=== PATIENT | male | born 1950 | race Caucasian/White ===

== ENCOUNTER → 2020-03-29 16:01 | Outpatient (CLI) | payer MEDICARE, SELFPAY ==
[2020-03-30 19:58] LABS: COVID19 Sendout Not Detected (Not Detect)
== END ==
PROVIDERS: Visit Provider Physician Assistant
DX: Z11.59 Encounter for screening for other viral diseases (principal)
CPT/HCPCS: 87635

== ENCOUNTER 2020-04-01 07:01 | Day surgery (SDC) | payer MEDICARE, SELFPAY ==
[2020-04-01] MEDS: PROPARACAINE 0.5% OPHTH SOL 2 DROPS EYE-OP (07:48)
[2020-04-01 07:49] VITALS: BP 168/81; PULSE 57; RESP 16; TEMP 36.6; O2SAT 98; BMI 23.7
[2020-04-01] MEDS: CATARACT EYE COMPOUND (10 DROPS/SYRINGE) 3 DROPS EYE-OP (08:06)
[2020-04-01 08:13] VITALS: BMI 23.7
--- NOTE | 2020-04-01 08:22 | PM.PREOP ---
Pre-operative Note COVID-19 COVID-19 status: Negative Result date/Date tested (Pos, Neg/Pending): 03/29/20 Interval Note History & Physical reviewed/Exam performed by Physician: Yes Changes to H&P: No
[2020-04-01] MEDS: LIDOCAINE 2% INJ SDV 2 ML INJ (08:41)
[2020-04-01] MEDS: MOXIFLOXACIN INJ 5 MG/ML VIAL EYE-OP (08:41)
[2020-04-01] MEDS: BALANCED SALT IRRIG SOLN NO.2 15 ML 5 ML IRR (08:41)
[2020-04-01] MEDS: CHONDROIDTIN/SOD HYALURONATE 1.05 ML SYRINGE INTRAOCULA (08:41)
[2020-04-01] MEDS: BALANCED SALT IRRIG SOLN NO.2 500 ML, EPINEPHrine 1 MG IRR (08:42)
[2020-04-01] MEDS: TETRACAINE 0.5% OPHTH DROPS 4 ML 2 DROPS EYE-OP (08:42)
[2020-04-01] MEDS: PHENYLEPHRINE/LIDOCAINE VIAL (OR) 0.2 ML EYE-OP (08:42)
--- NOTE | 2020-04-01 08:56 | PM.OP.1 ---
Procedure & Clinicians Procedure: Cataract extraction with intraocular lens implant, right. 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 The correct patient, surgical site and lens were confirmed. 0.5 % tetracaine drops were placed in the right eye. The patient was prepped and draped in the typical sterile manner. A lid speculum was placed in the eye. 2% lidocaine was placed on the eye. A paracentesis port was created with a side-port blade. 0.1 mL of 1% preservative free lidocaine with phenylephrine was injected into the anterior chamber. Viscoelastic was injected into the anterior chamber. A 2.6mm keratome was used to create a clear corneal temporal incision. Cystotome and Utrata forceps were used to create a continuous curvilinear capsulorrhexis. Balanced salt solution was used to hydrodissect the nucleus. Phacoemulsification was used to remove the lens. The capsular bag was inflated with viscoelastic. A Gomez ZCBOO +13.0D lens was inserted into the capsule. Viscoelastic was removed and the wound hydrated. The wound was found to be leak free and the eye was assessed to be at normal physiologic pressure. 0.1mL Moxifloxacin (5mg/mL) preservative free was injected into the anterior chamber. The lid speculum was removed and the patient left the operating room in excellent condition. Complications: none Post-operative Condition: stable Disposition: same day surgery
[2020-04-01 08:59] VITALS: BP 112/67; PULSE 54; RESP 16; TEMP 36.1; O2SAT 98
[2020-04-01 09:20] VITALS: BP 114/66; PULSE 49; RESP 18; O2SAT 97
[2020-04-01 09:34] VITALS: BP 120/68; PULSE 59; RESP 18; TEMP 36.8; O2SAT 97
--- NOTE | 2020-04-01 10:25 | SUR.PREOP ---
0753 - Pt vagaled after IV insertion. Pale, diaphoretic, nauseated. BP 96/51, HR 61. Cool rag applied to forhead. Placed on stretcher. 0813 - BP 143/77. HR 55. Pt states he feels better. 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
== END 2020-04-01 09:44 | disposition home or self-care (01) ==
LOC: OR 07:04
PROVIDERS: Referring Provider Ophthalmology; Visit Provider Ophthalmology
PROC: (CPT 66984; principal; 2020-04-01 08:15)
DX: H25.11 Age-related nuclear cataract, right eye (principal)
CPT/HCPCS: 66984; J0171; J2250; J3010

== ENCOUNTER → 2020-04-12 14:09 | Outpatient (CLI) | payer MEDICARE, SELFPAY ==
[2020-04-13 11:39] LABS: COVID19 Sendout Not Detected (Not Detect)
== END ==
PROVIDERS: Visit Provider Physician Assistant
DX: Z11.59 Encounter for screening for other viral diseases (principal)
CPT/HCPCS: 87635

== ENCOUNTER 2020-04-15 06:59 | Day surgery (SDC) | payer MEDICARE, SELFPAY ==
[2020-04-15] MEDS: PROPARACAINE 0.5% OPHTH SOL 2 DROPS EYE-OP (07:38)
[2020-04-15] MEDS: CATARACT EYE COMPOUND (10 DROPS/SYRINGE) 3 DROPS EYE-OP (07:39)
[2020-04-15 07:41] VITALS: BP 174/94; PULSE 61; RESP 15; TEMP 36.9; O2SAT 100
--- NOTE | 2020-04-15 07:47 | SUR.PREOP ---
Patient becoming nauseated after IV placement. Patient states that this has happened before. Cool cloth given, sip of water given and patient resting head between knees. Denies any CP or Sob. Recheck of vital signs wnl. Bp 137/69, HR 68.
--- NOTE | 2020-04-15 08:31 | PM.PREOP ---
Pre-operative Note COVID-19 COVID-19 status: Negative Result date/Date tested (Pos, Neg/Pending): 04/12/20 Interval Note History & Physical reviewed/Exam performed by Physician: Yes Changes to H&P: No
[2020-04-15] MEDS: BALANCED SALT IRRIG SOLN NO.2 500 ML, EPINEPHrine 1 MG IRR (08:52)
[2020-04-15] MEDS: LIDOCAINE 2% INJ SDV 2 ML INJ (08:53)
[2020-04-15] MEDS: PHENYLEPHRINE/LIDOCAINE VIAL (OR) 0.2 ML EYE-OP (08:53)
[2020-04-15] MEDS: MOXIFLOXACIN INJ 5 MG/ML VIAL EYE-OP (08:53)
[2020-04-15] MEDS: CHONDROIDTIN/SOD HYALURONATE 1.05 ML SYRINGE INTRAOCULA (08:54)
[2020-04-15] MEDS: TETRACAINE 0.5% OPHTH DROPS 4 ML 2 DROPS EYE-OP (08:54)
[2020-04-15] MEDS: BALANCED SALT IRRIG SOLN NO.2 15 ML 5 ML IRR (08:55)
--- NOTE | 2020-04-15 09:10 | PM.OP.1 ---
Procedure & Clinicians Procedure: Cataract extraction with intraocular lens implant, left. Same procedure as scheduled: Yes Indications: Visually significant age related nuclear sclerosis Surgeon: Jordy Patrick Click Yes if Unassisted: Yes Anesthesia Type: MAC +/- Operative Notes Procedure in detail: The patient was brought to the operating suite. The correct patient, surgical site and lens were confirmed. 0.5 % tetracaine drops were placed in the left eye. The patient was prepped and draped in the typical sterile manner. A lid speculum was placed in the eye. 2% lidocaine was placed on the eye. A paracentesis port was created with a side-port blade. 0.1 mL of 1% preservative free lidocaine with phenylephrine was injected into the anterior chamber. Viscoelastic was injected into the anterior chamber. A 2.6mm keratome was used to create a clear corneal temporal incision. Cystotome and Utrata forceps were used to create a continuous curvilinear capsulorrhexis. Balanced salt solution was used to hydrodissect the nucleus. Phacoemulsification was used to remove the lens. The capsular bag was inflated with viscoelastic. A Gomez ZCBOO 14.0D lens was inserted into the capsule. Viscoelastic was removed and the wound hydrated. The wound was found to be leak free and the eye was assessed to be at normal physiologic pressure. 0.1mL Moxifloxacin (5mg/mL) preservative free was injected into the anterior chamber. The lid speculum was removed and the patient left the operating room in excellent condition. Post-operative Condition: stable Disposition: same day surgery
[2020-04-15 09:12] VITALS: BP 140/82; PULSE 58; RESP 14; TEMP 36.2; O2SAT 98
[2020-04-15 09:22] VITALS: BP 139/86; PULSE 66; RESP 14; O2SAT 98
== END 2020-04-15 10:22 | disposition home or self-care (01) ==
LOC: OR 07:01
PROVIDERS: Referring Provider Ophthalmology; Visit Provider Ophthalmology
PROC: (CPT 66984; principal; 2020-04-15 08:15)
DX: H25.12 Age-related nuclear cataract, left eye (principal); F17.210 Nicotine dependence, cigarettes, uncomplicated
CPT/HCPCS: 66984; J0171; J2250; J3010

== ENCOUNTER 2021-02-05 13:19 | Emergency (ER) | payer MEDICARE, SELFPAY ==
[2021-02-05] VITALS (16 sets, daily range): BP systolic 98–143; BP diastolic 60–78; PULSE 55–80; RESP 16–24; TEMP 36.6; O2SAT 98–100; BMI 21.7
[2021-02-05 13:40] LABS: Add Manual Diff / Slide Review NO; Basophils Absolute Auto 100 /uL (0-100); Basophils Percent Auto 0.6 % (0-2); Eosinophils Absolute Auto 100 /uL (0-450); Eosinophils Percent Auto 0.6 % (2-4); Hematocrit 33.6 % (41-53); Hemoglobin 11.3 g/dL (13.5-17.5); Lymphocytes Absolute Auto 3300 /uL (1100-4500); Lymphocytes Percent Auto 27.5 % (25-40); Mean Corpuscular HGB Conc 33.8 % (30-36); Mean Corpuscular Hemoglobin 30.4 PG (26-34); Monocytes Absolute Auto 900 /uL (0-900); Monocytes Percent Auto 7.7 % (3-14); Neutrophils Absolute Auto 7700 /uL (1500-7000); Neutrophils Percent Auto 63.6 % (50-75); Platelet Count 306 X10^3/uL (150-400); Red Blood Cell Count 3.73 X10^6/uL (4.5-5.9); Red Cell Distribution Width 13.3 % (11.6-14.8); White Blood Cell Count 12.1 X10^3/uL (4.5-11.0)
[2021-02-05 13:50] LABS: Alanine Aminotransferase 12 IU/L (<50); Albumin 3.5 g/dL (3.5-5.0); Albumin Globulin Ratio 1.3 (1.0-2.8); Alkaline Phosphatase 61 U/L (38-126); Aspartate Aminotransferase 18 IU/L (17-59); BUN Creatinine Ratio 24.4 (6-22); Bilirubin Total 0.6 mg/dL (0.2-1.3); Blood Urea Nitrogen 21 mg/dL (9-20); Calcium 8.8 mg/dL (8.4-10.2); Carbon Dioxide 27 mmol/L (22-32); Chloride 98 mmol/L (98-107); Estimated Glomerular Filt Rate > 60.0 mL/min (>60); Globulin 2.6 g/dL (1.7-4.1); Glucose 113 mg/dL (80-110); HEMOLYSIS < 15 (0-50); Magnesium 1.9 mg/dL (1.6-2.3); Potassium 3.8 mmol/L (3.4-5.1); Sodium 132 mmol/L (137-145); Total Protein 6.1 g/dL (6.3-8.2)
--- NOTE | 2021-02-05 13:56 | ED_ITS ---
HPI - Syncope General Chief Complaint: Syncope Stated Complaint: syncopal episdoe Time Seen by Provider: 02/05/21 13:21 Source: patient and EMS Mode of arrival: EMS Limitations: no limitations History of Present Illness HPI narrative: 70-year-old male smoker with non contributory medical history presents by EMS for evaluation of a syncopal or near syncopal episode prior to arrival. He states that he has had little to drink or eat for some time, for no particular reason. He states that he was standing next to a truck and began to feel lightheaded and developed some tunnel vision and then slid over and probabl y briefly passed out. EMS was called on their arrival they found his systolic blood pressure to still be in the 60s. He was given IV and some fluids and by the time he got here he felt much better and had a blood pressure of over 100. He denies any dietary change, drinking or street drugs. He denies any injury as a consequence of today's event. MD complaint: loss of consciousness and felt faint Onset (ago): minute(s) -: second(s) Description of event: tonic-clonic movements Prodromal symptoms: lightheaded Witnessed: yes - by bystander Context: at rest Injuries sustained associated with event: none Current symptoms: none Related Data Home Medications Medication Instructions Recorded Confirmed No Known Home Medications 04/01/20 04/15/20 Allergies Allergy/AdvReac Type Severity Reaction Status Date / Time No Known Drug Allergies Allergy Verified 04/15/20 07:35 Review of Systems Constitutional Constitutional: Denies chills, Denies fatigue, Denies fever(s), Denies frequent falls, Denies lethargy and Denies weakness Eyes Eyes: Denies change in vision, Denies eye discharge, Denies irritation and Denies loss of vision ENT Ears, Nose, Mouth, and Throat: Denies change in voice, Denies dizziness, Denies neck pain, Denies sore throat and Denies throat swelling Cardiovascular Cardiovascular: Denies chest pain, Denies irregular heart rhythm, Reports lightheadedness, Denies palpitations, Denies dyspnea, Denies dyspnea on exertion and Denies orthopnea Respiratory Respiratory: Denies cough, Denies dyspnea, Denies dyspnea on exertion and Denies wheezing Gastrointestinal Gastrointestinal: Denies abdominal pain, Denies change in bowel habits, Denies diarrhea, Denies nausea and Denies vomiting Musculoskeletal Musculoskeletal: Denies neck pain and Denies numbness Integumentary/Breasts Skin/Breast: Denies pruritus, Denies erythema, Denies rash and Denies wounds Neurologic Neurologic: Denies behavioral changes, Denies confusion, Denies dizziness, Denies frequent falls, Denies loss of vision, Denies numbness and Denies weakness Psychiatric Psychiatric: Denies anxiety, Denies behavioral changes, Denies confusion, Denies depression, Denies homicidal ideation and Denies suicidal ideation Endocrine Endocrine: Denies fatigue, Denies flushing and Denies palpitations Hematologic/Lymphatic Hematologic/Lymphatic: Denies easy bruising Allergic/Immunologic Allergic/Immunologic: Denies urticaria, Denies throat swelling and Denies w heezing Patient History Medical History Needle phobia Social History household members: spouse Smoking Status: Former smoker alcohol intake: current Smoking Status: Former smoker alcohol intake frequency: a few times a week Substance Use Type: marijuana Exam Narrative Exam Narrative: GENERAL: [70] year old patient appears stated age. Well- developed patient, in mild distress. HEAD: Atraumatic. Normocephalic. EYES: Pupils equal round and reactive. Extraocular motions intact. No scleral icterus. No injection or drainage. ENT: Nose without bleeding, purulent drainage. Throat without erythema, tonsillar hypertrophy or exudate. Airway patent. NECK: Trachea midline. Non tender CARDIOVASCULAR: Regular rate and rhythm without murmurs, gallops, or rubs. RESPIRATORY: Clear to auscultation. Breath sounds equal bilaterally. No wheezes, rales, or rhonchi. GASTROINTESTINAL: Abdomen soft, non-tender, nondistended. EXTREMITIES: No edema or joint tenderness. BACK: Nontender without deformity or crepitance. No flank tenderness. NEURO: AOx3. SKIN: No rash or erythema of visible areas Initial Vital Signs Initial Vital Signs: Vital Signs Temperature 98 F 02/05/21 13:25 Pulse Rate 63 02/05/21 13:25 Respiratory Rate 16 02/05/21 13:25 Blood Pressure 118/71 02/05/21 13:25 Pulse Oximetry 98 02/05/21 13:25 Course Course Course Narrative: Patient feeling much better after fluids started to make some urines, he did well with orthostatics, is no longer dizzy, weak or lightheaded. He is eating and drinking without difficulty. Patient had a syncopal episode with prodromal symptoms including dizziness, weakness and lightheadedness, he was able to ease himself down and did not injure himself. EKG shows no ischemic findings. Physical exam, history and labs which suggest dehydration. Return precautions given and questions answered to the patient's satisfaction Orders Ordered: ED Orders 02/05/21 13:21 EKG-12 Lead Stat 02/05/21 13:35 Complete Blood Count AUTO DIFF Stat Comprehensive Metabolic Panel Stat Magnesium Stat Discontinued Medications Lactated Ringer's (Lactated Ringers) 1,000 mls @ 1,000 mls/hr IV BOLUS ONE Stop: 02/05/21 14:20 Last Infusion: 02/05/21 15:09 Dose: 0 mls/hr Documented by: Admin: 02/05/21 14:14 Dose: 1,000 mls/hr Documented by: ALVIN Vital Signs Vital signs: Vital Signs - 8 hr 02/05/21 13:25 02/05/21 13:43 02/05/21 13:45 Temperature 98 F Pulse Rate 63 56 L 55 L Pulse Rate [Orthostatic Lying] Pulse Rate [Orthostatic Sitting] Pulse Rate [Orthostatic Standing] Respiratory Rate 16 17 20 Blood Pressure 118/71 98/60 Blood Pressure [Orthostatic Lying] Blood Pressure [Orthostatic Sitting] Blood Pressure [Orthostatic Standing] Pulse Oximetry 98 02/05/21 14:00 02/05/21 14:15 02/05/21 14:30 Temperature Pulse Rate 58 L 61 56 L Pulse Rate [Orthostatic Lying] Pulse Rate [Orthostatic Sitting] Pulse Rate [Orthostatic Standing] Respiratory Rate 21 18 18 Blood Pressure 105/65 109/71 115/73 Blood Pressure [Orthostatic Lying] Blood Pressure [Orthostatic Sitting] Blood Pressure [Orthostatic Standing] Pulse Oximetry 100 99 100 02/05/21 14:45 02/05/21 14:48 02/05/21 14:50 Temperature Pulse Rate 57 L 61 63 Pulse Rate [Orthostatic Lying] Pulse Rate [Orthostatic Sitting] Pulse Rate [Orthostatic Standing] Respiratory Rate 17 18 22 Blood Pressure 129/69 124/78 139/73 Blood Pressure [Orthostatic Lying] Blood Pressure [Orthostatic Sitting] Blood Pressure [Orthostatic Standing] Pulse Oximetry 100 100 100 02/05/21 14:51 02/05/21 14:52 02/05/21 14:55 Temperature Pulse Rate 72 Pulse Rate [Orthostatic Lying] 59 L Pulse Rate [Orthostatic Sitting] 67 Pulse Rate [Orthostatic Standing] 80 Respiratory Rate 22 Blood Pressure 140/76 Blood Pressure [Orthostatic Lying] 124/78 124/78 Blood Pressure [Orthostatic Sitting] 139/73 139/73 Blood Pressure [Orthostatic Standing] 140/76 140/76 Pulse Oximetry 100 02/05/21 15:00 02/05/21 15:15 02/05/21 15:30 Temperature Pulse Rate 61 61 60 Pulse Rate [Orthostatic Lying] Pulse Rate [Orthostatic Sitting] Pulse Rate [Orthostatic Standing] Respiratory Rate 20 20 24 Blood Pressure Blood Pressure [Orthostatic Lying] Blood Pressure [Orthostatic Sitting] Blood Pressure [Orthostatic Standing] Pulse Oximetry 100 100 100 MDM - Syncope Lab Data Result diagrams: 02/05/21 13:35 02/05/21 13:35 Labs: Lab Results 02/05/21 02/05/21 Range/Units 13:35 13:35 WBC 12.1 H (4.5-11.0) X10^3/uL RBC 3.73 L (4.5-5.9) X10^6/uL Hgb 11.3 L (13.5-17.5) g/dL Hct 33.6 L (41-53) % MCV 90.0 (80-100) fL MCH 30.4 (26-34) PG MCHC 33.8 (30-36) % RDW 13.3 (11.6-14.8) % Plt Count 306 (150-400) X10^3/uL Neut % (Auto) 63.6 (50-75) % Lymph % (Auto) 27.5 (25-40) % [place] % (Auto) 7.7 (3-14) % Eos % (Auto) 0.6 L (2-4) % Baso % (Auto) 0.6 (0-2) % Neut # (Auto) 7700 H (0302-8199) /uL Lymph # (Auto) 3300 (7398-1027) /uL [place] # (Auto) 900 (0-900) /uL Eos # (Auto) 100 (0-450) /uL Baso # (Auto) 100 (0-100) /uL Sodium 132 L (137-145) mmol/L Potassium 3.8 (3.4-5.1) mmol/L Chloride 98 (98-107) mmol/L Carbon Dioxide 27 (22-32) mmol/L BUN 21 H (9-20) mg/dL Creatinine 0.86 (0.66-1.25) mg/dL Estimated GFR > 60.0 (>60) mL/min BUN/Creatinine Ratio 24.4 H (6-22) Glucose 113 H (80-110) mg/dL Calcium 8.8 (8.4-10.2) mg/dL Magnesium 1.9 (1.6-2.3) mg/dL Total Bilirubin 0.6 (0.2-1.3) mg/dL AST 18 (17-59) IU/L ALT 12 (<50) IU/L Alkaline Phosphatase 61 (38-126) U/L Total Protein 6.1 L (6.3-8.2) g/dL Albumin 3.5 (3.5-5.0) g/dL Globulin 2.6 (1.7-4.1) g/dL Albumin/Globulin Ratio 1.3 (1.0-2.8) Urine Dip Bedside Urine Glucose Negative Bedside Urine Bilirubin - Negative Bedside Urine Ketone - Negative Urine Specific [place] 1.025 Bedside Urine Occult Blood - Negative Bedside Urine pH 6.0 Bedside Urine Protein + 30 Bedside Urine Urobilinogen - Negative Bedside Urine Nitrite - Negative Bedside Urine Leukocytes - Negative Esterase Discharge Plan Departure Patient Disposition: Home Clinical Impression: Dehydration, Near syncope Instructions: DI for Syncope in Adults (Fainting), DI for Dehydration -- Adult Activity Restrictions/Additional Instructions: *You have been diagnosed with [near syncope and dehydration. Labs, response to fluids and other testing is very reassuring] *What to do: *Please continue to take your regular medications as directed. [ ] New medication prescriptions sent to your pharmacy: [ ] [ ] New medication written as a paper prescription [ ] No new medications given *Please follow up with your primary care provider in 2-3 days, call for an appointment. Let them know you were seen in the Emergency Department and that we ask that you be seen in follow up. We will electronically transmit a record of today's note if your PCP is in our system *If you do not have a primary care provider please contact the [facility] Resource line at [phone]. They will ask some questions about your medical history and help get you set up with a doctor in the community. *Return to Emergency Department if you should have any new, worsening or concerning symptoms, such as [fever greater than 101 F, shaking chills, worsening pain, persistent vomiting or other bothersome symptoms] Prescriptions: No Action No Known Home Medications RF: 0 Referrals: [facility] Resources [Outside]
[2021-02-05] MEDS: LACTATED RINGERS 1,000 ML 1000 ML IV (14:14)
== END 2021-02-05 15:47 | disposition home or self-care (01) ==
PROVIDERS: Emergency Provider Emergency Medicine
DX: E86.0 Dehydration (principal); R55 Syncope and collapse
CPT/HCPCS: 80053; 81003; 83735; 85025; 93005; 96360; 99284

== ENCOUNTER 2021-02-19 15:46 | Emergency (ER) | payer MEDICARE, SELFPAY ==
[2021-02-19 16:59] VITALS: BP 153/88; PULSE 87; RESP 18; TEMP 37.6; O2SAT 98; BMI 20.6
--- NOTE | 2021-02-19 17:30 | DI.CT.S_ITS ---
PROCEDURE: CT ABDOMEN PELVIS W CON INDICATIONS: generalized abd pain TECHNIQUE: After the administration of IV contrast, axial sections were acquired from the lung bases to the pubic symphysis. Coronal and sagittal reformats were performed. For radiation dose reduction, the following was used: automated exposure control, adjustment of mA and/or kV according to patient size. COMPARISON: None. FINDINGS: Image quality: Excellent. Lung bases: Unremarkable. Heart: No significant findings. ABDOMEN: Liver: Liver is enlarged with fatty infiltration. In addition, there is a mildly nodular appearance. Multiple low-attenuation foci are present, the largest measuring approximately 4 mm. In addition, there are 2 foci of enhancement: Anterior hepatic dome 0.7 cm x 1.0 cm (10/08 and medial right hepatic lobe 1.2 cm x 1.1 cm (10/17). No priors are available for comparison. Gallbladder: Unremarkable. Biliary ducts: Unremarkable. Pancreas: Unremarkable. Spleen: Unremarkable. Adrenal Glands: Unremarkable. Kidneys and Ureters: Kidneys are nonobstructive. Renal cysts are present bilaterally. Stomach and Bowel: Stomach, small bowel loops, and colon are unremarkable. It is noted that they are incompletely visualized secondary to severe abdominal and pelvic ascites. Prominent colonic diverticula are noted. However, they are incompletely evaluated secondary to significant overlying fluid. No free air. Ventral Wall: No hernia. Abdominal Nodes: No retroperitoneal or mesenteric adenopathy by size criteria. Vessels: Aorta and inferior vena cava are normal in size. PELVIS: Pelvic Organs: Unremarkable. Bladder: Unremarkable. Pelvic Nodes: No enlarged lymph nodes. Miscellaneous: No inguinal hernias are seen. Bones: Unremarkable. IMPRESSION: 1. Significant ascites obscuring some portions of the abdomen and pelvis. Liver is enlarged with coarsened/nodular appearance suggestive of cirrhosis. 2. Subcentimeter low-attenuation hepatic foci too small to definitively characterize. However, these may represent small cysts. 3. Enhancing foci within the liver as above. These are overall nonspecific. These could represent hemangiomas. However, other etiologies cannot be excluded and no priors are available for comparison. Recommend interval follow-up with CT or MR with hepatic protocol for further Dictated by: Raina Mabyr M.D. on 02/19/2021 at 18:51 Approved by: Raina Mabry M.D. on 02/19/2021 at 19:00
[2021-02-19] MEDS: LACTATED RINGERS 1,000 ML 1000 ML IV (17:44)
[2021-02-19 18:04] LABS: Add Manual Diff / Slide Review NO; Basophils Absolute Auto 100 /uL (0-100); Basophils Percent Auto 0.7 % (0-2); Eosinophils Absolute Auto 0 /uL (0-450); Eosinophils Percent Auto 0.2 % (2-4); Hematocrit 37.4 % (41-53); Hemoglobin 12.5 g/dL (13.5-17.5); Lymphocytes Absolute Auto 3100 /uL (1100-4500); Lymphocytes Percent Auto 25.2 % (25-40); Mean Corpuscular HGB Conc 33.3 % (30-36); Mean Corpuscular Hemoglobin 29.9 PG (26-34); Mean Corpuscular Volume 89.7 fL (80-100); Monocytes Absolute Auto 1100 /uL (0-900); Monocytes Percent Auto 8.7 % (3-14); Neutrophils Absolute Auto 8000 /uL (1500-7000); Neutrophils Percent Auto 65.2 % (50-75); Platelet Count 302 X10^3/uL (150-400); Red Blood Cell Count 4.17 X10^6/uL (4.5-5.9); Red Cell Distribution Width 13.3 % (11.6-14.8); White Blood Cell Count 12.2 X10^3/uL (4.5-11.0)
--- NOTE | 2021-02-19 18:08 | ED_ITS ---
HPI - Abdominal Pain General Chief Complaint: Abdominal Pain Stated Complaint: LT QUADRANT ABDOMINAL PAIN Time Seen by Provider: 02/19/21 17:27 Source: patient Mode of arrival: Ambulatory Limitations: no limitations History of Present Illness HPI narrative: 70-year-old male smoker with noncontributory medical history presents by EMS for evaluation of a near syncopal episode prior to his arrival. He states that for the past few weeks he has had some difficulty with bowel movements and has become nauseated when eating or drinking so has admittedly had less to eat and drink. he states that he had been on his feet and felt a bit faint, dizzy and lightheaded and eased himself to the ground. EMS found a blood pressure in the 60s and brought him here. He states he has been having crampy lower abdominal pain over the past 1-2 weeks without any obvious provocation, palliation or radiation. He has had no fever chills and denies chest pain or shortness MD complaint: abdominal pain Onset (ago): day(s) Pain Consistency: constant Location: suprapubic Severity: moderate Quality: cramping and aching Radiation: none Relieving factors: nothing Exacerbating factors: nothing Associated symptoms: nausea Related Data Previous Rx's Medication Instructions Recorded magnesium citrate 150 ml PO ONCE #296 ml 02/17/21 omeprazole 20 mg capsule,delayed 20 mg PO DAILY #14 cap 02/17/21 release hydrocodone-acetaminophen 1 tab PO Q4-6H PRN #10 tab 02/19/21 oxycodone 5 mg PO Q4-6H PRN #10 tab 02/19/21 Allergies Allergy/AdvReac Type Severity Reaction Status Date / Time No Known Drug Allergies Allergy Verified 02/19/21 16:59 Review of Systems Constitutional Constitutional: Denies chills, Denies fatigue, Denies fever(s), Denies frequent falls, Denies lethargy and Denies weakness Eyes Eyes: Denies change in vision, Denies eye discharge, Denies irritation and Denies loss of vision ENT Ears, Nose, Mouth, and Throat: Denies change in voice, Denies dizziness, Denies neck pain, Denies sore throat and Denies throat swelling Cardiovascular Cardiovascular: Denies chest pain, Denies irregular heart rhythm, Denies lightheadedness, Denies palpitations, Denies dyspnea, Denies dyspnea on exertion and Denies orthopnea Respiratory Respiratory: Denies cough, Denies dyspnea, Denies dyspnea on exertion and Denies wheezing Gastrointestinal Gastrointestinal: Reports abdominal pain, Denies change in bowel habits, Denies diarrhea, Reports nausea and Denies vomiting Musculoskeletal Musculoskeletal: Denies neck pain and Denies numbness Integumentary/Breasts Skin/Breast: Denies pruritus, Denies erythema, Denies rash and Denies wounds Neurologic Neurologic: Denies behavioral changes, Denies confusion, Denies dizziness, Denies frequent falls, Denies loss of vision, Denies numbness and Denies weakness Psychiatric Psychiatric: Denies anxiety, Denies behavioral changes, Denies confusion, Denies depression, Denies homicidal ideation and Denies suicidal ideation Endocrine Endocrine: Denies fatigue, Denies flushing and Denies palpitations Hematologic/Lymphatic Hematologic/Lymphatic: Denies easy bruising Allergic/Immunologic Allergic/Immunologic: Denies urticaria, Denies throat swelling and Denies wheezing Patient History Medical History Needle phobia Social History household members: spouse Smoking Status: Former smoker alcohol intake: current Smoking Status: Former smoker alcohol intake frequency: holidays/special occasions only Substance Use Type: marijuana Exam Narrative Exam Narrative: GENERAL: [70] year old patient appears stated age. Well- developed patient, in mild distress. HEAD: Atraumatic. Normocephalic. EYES: Pupils equal round and reactive. Extraocular motions intact. No scleral icterus. No injection or drainage. ENT: Nose without bleeding, purulent drainage. Throat without erythema, tonsillar hypertrophy or exudate. Airway patent. NECK: Trachea midline. Non tender CARDIOVASCULAR: Regular rate and rhythm without murmurs, gallops, or rubs. RESPIRATORY: Clear to auscultation. Breath sounds equal bilaterally. No wheezes, rales, or rhonchi. GASTROINTESTINAL: Abdomen soft, non-tender, nondistended. Decreased bowel sounds in lower quadrants EXTREMITIES: No edema or joint tenderness. BACK: Nontender without deformity or crepitance. No flank tenderness. NEURO: AOx3. SKIN: No rash or erythema of visible areas Initial Vital Signs Initial Vital Signs: Vital Signs Temperature 99.6 F 02/19/21 16:59 Pulse Rate 87 02/19/21 16:59 Respiratory Rate 18 02/19/21 16:59 Blood Pressure 153/88 H 02/19/21 16:59 Pulse Oximetry 98 02/19/21 16:59 Course Orders Ordered: Discontinued Medications Lactated Ringer's (Lactated Ringers) 1,000 mls @ 1,000 mls/hr IV BOLUS ONE Stop: 02/19/21 18:26 Last Infusion: 02/19/21 20:54 Dose: 0 mls/hr Documented by: Admin: 02/19/21 17:44 Dose: 1,000 mls/hr Documented by: JSHAFF Oxycodone/Acetaminophen (Oxycodone/Apap 5/325 Prepack) 1 bottle MISC SEEINSTR ONE Stop: 02/19/21 21:20 Last Admin: 02/19/21 21:58 Dose: 1 bottle Documented by: KING Reevaluation(s) Reevaluation #1: Patient feeling much better, orthostatics are unremarkable and patient can not ambulate to the department with no trouble Vital Signs Vital signs: Vital Signs - 8 hr 02/19/21 22:04 Pulse Rate 85 Respiratory Rate 16 Blood Pressure 129/81 Pulse Oximetry 99 MDM - Abdominal Pain Lab Data Result diagrams: 02/19/21 17:21 02/19/21 17:21 Labs: Lab Results 02/19/21 02/19/21 Range/Units 17:21 17:21 WBC 12.2 H (4.5-11.0) X10^3/uL RBC 4.17 L (4.5-5.9) X10^6/uL Hgb 12.5 L (13.5-17.5) g/dL Hct 37.4 L (41-53) % MCV 89.7 (80-100) fL MCH 29.9 (26-34) PG MCHC 33.3 (30-36) % RDW 13.3 (11.6-14.8) % Plt Count 302 (150-400) X10^3/uL Neut % (Auto) 65.2 (50-75) % Lymph % (Auto) 25.2 (25-40) % Stark % (Auto) 8.7 (3-14) % Eos % (Auto) 0.2 L (2-4) % Baso % (Auto) 0.7 (0-2) % Neut # (Auto) 8000 H (0077-4663) /uL Lymph # (Auto) 3100 (4225-4816) /uL Stark # (Auto) 1100 H (0-900) /uL Eos # (Auto) 0 (0-450) /uL Baso # (Auto) 100 (0-100) /uL Sodium 131 L (137-145) mmol/L Potassium 3.7 (3.4-5.1) mmol/L Chloride 98 (98-107) mmol/L Carbon Dioxide 29 (22-32) mmol/L BUN 24 H (9-20) mg/dL Creatinine 0.80 (0.66-1.25) mg/dL Estimated GFR > 60.0 (>60) mL/min BUN/Creatinine Ratio 30.0 H (6-22) Glucose 102 (80-110) mg/dL Calcium 9.9 (8.4-10.2) mg/dL Total Bilirubin 1.0 (0.2-1.3) mg/dL AST 21 (17-59) IU/L ALT 12 (<50) IU/L Alkaline Phosphatase 71 (38-126) U/L Total Protein 6.5 (6.3-8.2) g/dL Albumin 3.6 (3.5-5.0) g/dL Globulin 2.9 (1.7-4.1) g/dL Albumin/Globulin Ratio 1.2 (1.0-2.8) Lipase 181 (23-300) U/L Point of care testing: Urine Dip Bedside Urine Glucose Negative Bedside Urine Bilirubin - Negative Bedside Urine Ketone - Negative Urine Specific [place] 1.025 Bedside Urine Occult Blood - Negative Bedside Urine pH 6.0 Bedside Urine Protein +/- 15 Bedside Urine Urobilinogen - Negative Bedside Urine Nitrite - Negative Bedside Urine Leukocytes - Negative Esterase Imaging Data CT scan - abdomen/pelvis: Radiologist's Impression: [address] [id number] Scan ReportSigned Patient: Go Chao JMR#: [id number]: [id number]:[id number]/ Sex: 70 / MDate of Service: 02/19/21Loc: EDAccession Number: [id number] Procedure: CT abdomen pelvis w con Ordering Provider: Go Garcia D.O. PROCEDURE: CT ABDOMEN PELVIS W CON INDICATIONS: generalized abd pain TECHNIQUE: After the administration of IV contrast, axial sections were acquired from the lung bases to the pubic symphysis. Coronal and sagittal reformats were performed. For radiation dose reduction, the following was used: automated exposure control, adjustment of mA and/or kV according to patient size. COMPARISON: None. FINDINGS: Image quality: Excellent. Lung bases: Unremarkable. Heart: No significant findings. ABDOMEN: Liver: Liver is enlarged with fatty infiltration. In addition, there is a mildly nodular appearance. Multiple low-attenuation foci are present, the largest measuring approximately 4 mm. In addition, there are 2 foci of enhancement: Anterior hepatic dome 0.7 cm x 1.0 cm (10/08 and medial right hepatic lobe 1.2 cm x 1.1 cm (10/17). No priors are available for comparison. Gallbladder: Unremarkable. Biliary ducts: Unremarkable. Pancreas: Unremarkable. Spleen: Unremarkable. Adrenal Glands: Unremarkable. Kidneys and Ureters: Kidneys are nonobstructive. Renal cysts are present bi laterally. Stomach and Bowel: Stomach, small bowel loops, and colon are unremarkable. It is noted that they are incompletely visualized secondary to severe abdominal and pelvic ascites. Prominent colonic diverticula are noted. However, they are incompletely evaluated secondary to significant overlying fluid. No free air. Ventral Wall: No hernia. Abdominal Nodes: No retroperitoneal or mesenteric adenopathy by size criteria. Vessels: Aorta and inferior vena cava are normal in size. PELVIS: Pelvic Organs: Unremarkable. Bladder: Unremarkable. Pelvic Nodes: No enlarged lymph nodes. Miscellaneous: No inguinal hernias are seen. Bones: Unremarkable. IMPRESSION: 1. Significant ascites obscuring some portions of the abdomen and pelvis. Liver is enlarged with coarsened/nodular appearance suggestive of cirrhosis. 2. Subcentimeter low-attenuation hepatic foci too small to definitively characterize. However, these may represent small cysts. 3. Enhancing foci within the liver as above. These are overall nonspecific. These could represent hemangiomas. However, other etiologies cannot be excluded and no priors are available for comparison. Recommend interval follow-up with CT or MR with hepatic protocol for further Dictated by: Raina Mabry M.D. on 02/19/2021 at 18:51 Approved by: Raina Mabry M.D. on 02/19/2021 at 19:00 [facility] Narrative Medical decision making narrative: patient has very reassuring physical exam, labs and imaging. He is feeling significant improvement after the above-stated therapies. Return precautions given and questions answered to his apparent satisfaction Discharge Plan Departure Patient Disposition: Home Clinical Impression: Dehydration Abdominal pain Qualifiers: Abdominal location: lower abdomen, unspecified Qualified Code(s): R10.30 - Lower abdominal pain, unspecified Constipation Qualifiers: Constipation type: unspecified constipation type Qualified Code(s): K59.00 - Constipation, unspecified Instructions: DI for Dehydration -- Adult, DI for Abdominal Pain-Adult Activity Restrictions/Additional Instructions: *You have been diagnosed with [Abdominal pain, reassuring CT scan, physical exam and lab work ] *What to do: *Please continue to take your regular medications as directed. [ x] New medication prescriptions sent to your pharmacy: [ ] [ ] New medication written as a paper prescription [ ] No new medications given *Please follow up with your primary care provider in 2-3 days, call for an appointment. Let them know you were seen in the Emergency Department and that we ask that you be seen in follow up. We will electronically transmit a record of today's note if your PCP is in our system *If you do not have a primary care provider please contact the [facility] Resource line at [phone]. They will ask some questions about your medical history and help get you set up with a doctor in the community. *Return to Emergency Department if you should have any new, worsening or concerning symptoms, such as [fever greater than 101 F, shaking chills, worsening pain, persistent vomiting or other bothersome symptoms] *Take over the counter medications as directed: 1. Metamucil - bulk forming laxative adds fiber 2. Colace - softens your stool 3. Dulcolax Suppository - stimulates your bowels from the bottom *Follow up with your primary care provider in 2-3 days, call for appointment *Return to ER if you should have any new, worsening or concerning symptoms *Drink plenty of water and eat foods high in fiber *Try to be as active as possible, consider walking your dog daily Prescriptions: New hydrocodone-acetaminophen 5-325 mg tablet 1 tab PO Q4-6H PRN (Reason: pain) Qty: 10 RF: 0 oxycodone 5 mg tablet 5 mg PO Q4-6H PRN (Reason: pain) Qty: 10 RF: 0 No Action magnesium citrate Solution 150 ml PO ONCE Qty: 296 RF: 0 omeprazole 20 mg capsule,delayed release(DR/EC) 20 mg PO DAILY Qty: 14 RF: 0 Referrals: [facility] Resources [Outside]
[2021-02-19 18:23] LABS: Alanine Aminotransferase 12 IU/L (<50); Albumin 3.6 g/dL (3.5-5.0); Albumin Globulin Ratio 1.2 (1.0-2.8); Alkaline Phosphatase 71 U/L (38-126); Aspartate Aminotransferase 21 IU/L (17-59); Blood Urea Nitrogen 24 mg/dL (9-20); Calcium 9.9 mg/dL (8.4-10.2); Carbon Dioxide 29 mmol/L (22-32); Chloride 98 mmol/L (98-107); Estimated Glomerular Filt Rate > 60.0 mL/min (>60); Globulin 2.9 g/dL (1.7-4.1); Glucose 102 mg/dL (80-110); HEMOLYSIS < 15 (0-50); Lipase 181 U/L (23-300); Potassium 3.7 mmol/L (3.4-5.1); Sodium 131 mmol/L (137-145); Total Protein 6.5 g/dL (6.3-8.2)
[2021-02-19 19:51] VITALS: BP 126/83; BP 152/92; BP 153/90
[2021-02-19] MEDS: OXYCODONE/APAP 5/325 PREPACK 1 BOTTLE MISC (21:58)
[2021-02-19 22:04] VITALS: BP 129/81; PULSE 85; RESP 16; O2SAT 99
== END 2021-02-19 22:04 | disposition home or self-care (01) ==
PROVIDERS: Emergency Medicine; Emergency Provider Emergency Medicine
DX: R10.30 Lower abdominal pain, unspecified (principal); K59.00 Constipation, unspecified; E86.0 Dehydration; R11.0 Nausea
CPT/HCPCS: 36415; 74177; 80053; 81003; 83690; 85025; 93005; 93010; 96360; 96361; 99284